=== PATIENT | female | born 1995 | race Caucasian/White ===

== ENCOUNTER 2016-08-11 13:00 | Outpatient (RCR) | payer OTHER ==
[~2016-08-11 13:00] MED LIST: NO HOME MEDICATIONS; NORCO 325 MG-51 TAB PO
[2016-10-29] MEDS ORDERED: PYRIDIUM200 M1 PO (23:07)
[2016-10-29] MEDS ORDERED: OMNICEF 300MG300 MG PO (23:07)
[2016-11-02] MEDS ORDERED: ULTRAM 50MG TAB50 MG PO (20:17)
== END 2016-11-09 | disposition still patient (30) ==
LOC: WSOH
DX: S67.92XA Crushing injury of unspecified part(s) of left wrist, hand and fingers, initial encounter (principal); W23.0XXA Caught, crushed, jammed, or pinched between moving objects, initial encounter; Y92.512 Supermarket, store or market as the place of occurrence of the external cause; Y99.0 Civilian activity done for income or pay

== ENCOUNTER 2016-10-29 20:56 | Emergency (ER) | payer OTHER ==
[~2016-10-29] VITALS: Ht 165.1 cm; Wt 54.5 kg
[2016-10-29 21:02] VITALS: BP 113/48; TEMP 97.7
[2016-10-29 22:04] LABS: BASO # 0.1 (0.0-0.2); BASO % 0.7 % (0.0-2.0); EOS # 0.1 (0.0-0.7); EOS % 1.1 % (0-4.0); GRAN # 3.8 (1.4-6.5); GRAN % 51.2 % (42.2-75.2); HEMATOCRIT 37.6 % (35.0-45.0); HEMOGLOBIN 12.7 g/dl (12.0-15.0); LYMPH # 2.9 (1.2-3.4); LYMPH % 38.3 % (20.0-51.0); MEAN CELL VOLUME 86 fl (80.0-95.0); MEAN CORPUSCULAR HEMOGLOBIN 29 pg (26.0-32.0); MEAN CORPUSCULAR HGB CONC 34 g/dl (33.0-37.0); MEAN PLATELET VOLUME 10.3 fl (7.4-10.4); MONO # 0.6 (0.1-0.6); MONO % 8.3 % (1.7-9.3); PLATELET COUNT 221 K/mm3 (130-400); REDCELL DISTRIBUTION WIDTH-CV 12.3 % (11.5-14.5); WHITE BLOOD COUNT 7.5 K/mm3 (4.8-10.8)
[2016-10-29 22:09] LABS: PH 7 (5-8); URINE APPEARANCE Hazy; URINE BACTERIA Rare /hpf; URINE BILIRUBIN Negative (NEGATIVE); URINE BLOOD 3+ (NEGATIVE); URINE COLOR Yellow; URINE GLUCOSE Negative (NEGATIVE); URINE KETONE Negative (NEGATIVE); URINE RBC >50 /hpf; URINE UROBILINOGEN Negative (NEGATIVE); URINE WBC 20-50 /hpf
[2016-10-29 22:29] LABS: ALANINE AMINOTRANSFERASE 27 U/L (9-52); ALBUMIN 3.5 gm/dL (3.5-5.0); ALKALINE PHOSPHATASE 61 U/L (50-136); ANION GAP 9 mmol/L (7-16); BILIRUBIN,TOTAL 0.3 mg/dL (0.0-1.0); BLOOD UREA NITROGEN 9 mg/dL (7-17); CALCIUM 8.6 mg/dL (8.4-10.2); CARBON DIOXIDE 24 mmol/L (22-30); CHLORIDE 105 mmol/L (98-107); CREATININE, serum 0.79 mg/dL (0.52-1.25); GLUCOSE 67 mg/dL (74-106); LIPASE 157 U/L (23-300); POTASSIUM 3.3 mmol/L (3.4-5.0); SODIUM 138 mmol/L (137-145); TOTAL PROTEIN 5.9 gm/dL (6.4-8.2)
[2016-10-29 22:42] LABS: C-REACTIVE PROTEIN < 0.5 mg/dL (0.0-0.9)
[2016-10-29] MEDS ORDERED: OMNICEF 300MG300 MG PO (23:07)
[2016-10-29] MEDS ORDERED: PYRIDIUM200 M1 PO (23:07)
[2016-10-29 23:25] VITALS: PULSE 82
[2016-10-30 09:24] LABS: CHLAMYDIA/TRACH by PCR Female NOT DETECTED; NEISSERIA GON by PCR Female NOT DETECTED
== END 2016-10-29 23:25 | disposition home or self-care (01) ==
LOC: COL.ER 20:56
PROVIDERS: Emergency Medicine
DX: N39.0 Urinary tract infection, site not specified (principal); N94.6 Dysmenorrhea, unspecified
CPT/HCPCS: J2270; J2405; J7030

== ENCOUNTER 2016-11-02 16:51 | Emergency (ER) | payer OTHER ==
[~2016-11-02] VITALS: Ht 165.1 cm; Wt 55.5 kg
[~2016-11-02 16:51] MED LIST changes: +OMNICEF 300MG300 MG PO; +PYRIDIUM200 M1 PO
[2016-11-02 16:57] VITALS: BP 116/78; TEMP 98.9
[2016-11-02 18:35] LABS: PH 5 (5-8); SQUAMOUS EPITHELIAL None Seen /hpf; URINE APPEARANCE Hazy; URINE BACTERIA None Seen /hpf; URINE BILIRUBIN Negative (NEGATIVE); URINE BLOOD 3+ (NEGATIVE); URINE COLOR Yellow; URINE GLUCOSE Negative (NEGATIVE); URINE KETONE Trace (NEGATIVE); URINE RBC >50 /hpf; URINE UROBILINOGEN Negative (NEGATIVE)
[2016-11-02 18:46] LABS: BASO % 0.3 % (0.0-2.0); EOS # 0.1 (0.0-0.7); EOS % 0.5 % (0-4.0); GRAN # 10.2 (1.4-6.5); GRAN % 78.7 % (42.2-75.2); HEMATOCRIT 39.5 % (35.0-45.0); HEMOGLOBIN 13.4 g/dl (12.0-15.0); LYMPH % 15.4 % (20.0-51.0); MEAN CELL VOLUME 85 fl (80.0-95.0); MEAN CORPUSCULAR HEMOGLOBIN 29 pg (26.0-32.0); MEAN CORPUSCULAR HGB CONC 34 g/dl (33.0-37.0); MEAN PLATELET VOLUME 9.6 fl (7.4-10.4); MONO # 0.6 (0.1-0.6); MONO % 4.9 % (1.7-9.3); PLATELET COUNT 253 K/mm3 (130-400); RED BLOOD COUNT 4.64 M/mm3 (4.10-5.30); REDCELL DISTRIBUTION WIDTH-CV 12.3 % (11.5-14.5)
[2016-11-02 18:56] LABS: ADJUSTED CALCIUM 9.1 mg/dL (8.4-10.2); ALANINE AMINOTRANSFERASE 31 U/L (9-52); ALBUMIN 3.8 gm/dL (3.5-5.0); ALKALINE PHOSPHATASE 60 U/L (50-136); ANION GAP 9 mmol/L (7-16); BILIRUBIN,TOTAL 0.4 mg/dL (0.0-1.0); BLOOD UREA NITROGEN 14 mg/dL (7-17); CALCIUM 8.9 mg/dL (8.4-10.2); CARBON DIOXIDE 26 mmol/L (22-30); CHLORIDE 101 mmol/L (98-107); CREATININE, serum 0.69 mg/dL (0.52-1.25); GLUCOSE 81 mg/dL (74-106); LIPASE 110 U/L (23-300); SODIUM 135 mmol/L (137-145); TOTAL PROTEIN 6.3 gm/dL (6.4-8.2)
[2016-11-02 19:10] LABS: C-REACTIVE PROTEIN < 0.5 mg/dL (0.0-0.9)
[2016-11-02] MEDS ORDERED: ULTRAM 50MG TAB50 MG PO (20:17)
[2016-11-02 21:01] VITALS: PULSE 84
== END 2016-11-02 21:02 | disposition home or self-care (01) ==
LOC: COL.ER 16:51
PROVIDERS: Nurse Practitioner
DX: R10.13 Epigastric pain (principal); R10.30 Lower abdominal pain, unspecified
CPT/HCPCS: J1170; J7030; Q9967

== ENCOUNTER → 2017-09-15 | Outpatient (CLI) | payer OTHER ==
[~2017-09-15] MED LIST changes: +ULTRAM 50MG TAB50 MG PO
== END ==
LOC: COL.RAD 10:21
DX: K22.2 Esophageal obstruction (principal)

== ENCOUNTER 2017-10-03 13:34 | Emergency (ER) | payer OTHER ==
[~2017-10-03] VITALS: Ht 170.2 cm; Wt 52.3 kg
[2017-10-03 13:36] VITALS: BP 110/77; TEMP 97.8
[2017-10-03] MEDS ORDERED: TORADOL 10MG TA10 MG PO (14:03)
[2017-10-03] MEDS ORDERED: ULTRAM 50MG TAB50 MG PO (14:03)
[2017-10-03 14:37] VITALS: PULSE 70
== END 2017-10-03 14:39 | disposition home or self-care (01) ==
LOC: COL.ER 13:34
DX: M26.601 Right temporomandibular joint disorder, unspecified (principal); Z79.891 Long term (current) use of opiate analgesic; Z86.19 Personal history of other infectious and parasitic diseases; Z88.0 Allergy status to penicillin
CPT/HCPCS: J1885

== ENCOUNTER → 2018-04-07 | Outpatient (CLI) | payer BC ==
[~2018-04-07] MED LIST changes: +TORADOL 10MG TA10 MG PO
== END ==
LOC: COL.RAD 07:36
DX: R11.2 Nausea with vomiting, unspecified (principal)
CPT/HCPCS: A9541

== ENCOUNTER 2018-04-10 21:01 | Emergency (ER) | payer BC | END 2018-04-10 23:19 | disposition home or self-care (01) | LOC: COL.ER 21:01 | DX: H57.04 Mydriasis (principal); Z98.890 Other specified postprocedural states ==

== ENCOUNTER → 2018-08-15 | Outpatient (CLI) | payer BC ==
[~2018-08-15] MED LIST changes: +ATARAX 25MG25 MG/TAB PO; +ROXICODONE 55 MG/TAB PO; +SYNTHROID0.05 MG/TA PO
== END ==
LOC: COL.RAD 10:25
DX: Q65.89 Other specified congenital deformities of hip (principal); S73.191A Other sprain of right hip, initial encounter; Z97.5 Presence of (intrauterine) contraceptive device
CPT/HCPCS: A9585; Q9967

== ENCOUNTER → 2018-11-02 | Outpatient (CLI) | payer BC | LOC: COL.RAD 10-28 07:30 | DX: R10.11 Right upper quadrant pain (principal) ==